=== PATIENT | female | born 1930 | race Hispanic/Latino ===

== ENCOUNTER 2018-04-12 15:33 | Emergency (ER) | payer MEDICARE, OTHER ==
[2018-04-12 15:49] VITALS: BP 132/81; PULSE 83; RESP 16; TEMP 96.5; O2SAT 100
--- NOTE | 2018-04-12 16:42 | ED PDOC ---
Upper Extremity Pain/Injury Time Seen by Provider: 04/12/18 15:53 Chief Complaint (Nursing): Weakness/Neurological Deficit Chief Complaint (Provider): Weakness/Neurological Deficit History Per: Patient History/Exam Limitations: no limitations Onset/Duration Of Symptoms: Days (x1 month) Current Symptoms Are (Timing): Still Present Quality: Other (tingling) Additional Complaint(s): 87 year old female with a history of hypertension and diabetes presents to the ED with intermittent right arm tingling for a month. Patient reports tingling is in her right forearm and hand. She states it occurs randomly and occurs spontaneously. Patient feels as though her right hand is weaker than her left. She is right hand dominant. Patient denies injury, fall, swelling, headache, neck pain or any other medical complaints. She was seen by her PMD today, who sent her here for further evaluation. PMD: Dr. Sebastian Past Medical History Reviewed: Historical Data, Nursing Documentation, Vital Signs Vital Signs: Last Vital Signs Temp 96.5 F L 04/12/18 15:46 Pulse 83 04/12/18 15:46 Resp 16 04/12/18 15:46 BP 132/81 04/12/18 15:46 Pulse Ox 100 04/12/18 15:46 - Medical History PMH: Diabetes, HTN - Surgical History Other surgeries: mastectomy - Family History Family History: States: No Known Family Hx - Social History Current smoker - smoking cessation education provided: No Ex-Smoker (has not smoked in the last 12 months): No Alcohol: None Drugs: Denies - Allergies Allergies/Adverse Reactions: Allergies Allergy/AdvReac Type Severity Reaction Status Date / Time No Known Allergies Allergy Verified 04/12/18 15:46 Review of Systems ROS Statement: Except As Marked, All Systems Reviewed And Found Negative Musculoskeletal: Positive for: Other (no neck pain, right arm tingling, no swelling) Neurological: Negative for: Headache Physical Exam - Reviewed Nursing Documentation Reviewed: Yes Vital Signs Reviewed: Yes - Physical Exam Appears: Positive for: Well, No Acute Distress Head Exam: Positive for: ATRAUMATIC, NORMOCEPHALIC Skin: Positive for: Warm, Dry Neck: Positive for: Painless ROM (full), Supple (with no tenderness with palpation ) Extremity: Positive for: Other (Right upper extremity: strong radial pulse, full ROM in right hand, light touch intact in all nerve distributions of the hand, capillary refill less than 2 seconds) Lymphatic: Negative for: Adenopathy Neurologic/Psych: Positive for: Alert, Oriented. Negative for: Motor/Sensory Deficits - ECG O2 Sat by Pulse Oximetry: 100 (RA) Pulse Ox Interpretation: Normal Medical Decision Making Medical Decision Making: Time: 1602 Initial Impression: Right arm paresthesias Differential diagnoses include but are not limited to: Peripheral vascular disease, peripheral neuropathy, cervical radiculopathy, subacute, Initial Plan: --Cervical spine CT --CT head without contrast --US duplex Time: 173 CT Cervical Spine: FINDINGS: VERTEBRAE: Reversal of the anatomic lordosis with kyphosis. Degree: Mild Proliferative changes emanating from the posterior aspect of the dens. 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 There is no appreciable canal stenosis at this level. DISCS/SPINAL CANAL/NEURAL FORAMINA: Disc degenerative changes C5-6, C6-7. discs heights are grossly preserved. PARASPINAL SOFT TISSUES: Unremarkable. OTHER FINDINGS: Incompletely visualized sphenoid sinusitis. IMPRESSION: No acute findings related to/accounting for the clinical presentation. Additional benign and/or incidental findings described above. Given the history of paresthesias, MRI is the recommended procedure of choice to evaluate cervical spine and assess for possible myelopathy. Time: [address]: FINDINGS: HEMORRHAGE: No intracranial hemorrhage. BRAIN: No mass effect or edema. Cortical atrophy and chronic microvascular ischemic change. VENTRICLES: Unremarkable. No hydrocephalus. CALVARIUM: Unremarkable. 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 MASTOID AIR CELLS: Unremarkable as visualized. No inflammatory changes. OTHER FINDINGS: None. IMPRESSION: No acute intracranial abnormalities. No significant findings to account for the clinical presentation. Time: 183 US Duplex FINDINGS: RIGHT UPPER EXTREMITY: * Prox SCA : Peak Systolic Velocity-64.1: Doppler Waveform: Triphasic.: Plaque description - * Distal SCA: Peak Systolic Velocity - : Doppler Waveform: Triphasic.: Plaque description - * Axillary: Peak Systolic Velocity-642: Doppler Waveform: Triphasic.: Plaque description - * Brachial o Segment: Peak Systolic Velocity-71.7: Doppler Waveform: Triphasic.: Plaque description - * Radial o Segment: Peak Systolic Velocity-36.7: Doppler Waveform: Triphasic.: Plaque description - * Ulnar o Peak Systolic Velocity-36.7: Doppler Waveform: Triphasic.: Plaque description - OTHER FINDINGS: No atherosclerotic calcification present IMPRESSION: There is no evidence of hemodynamically significant arterial insufficiency in right upper extremity. Time: 1800 --Imaging is unremarkable. Case discussed with Dr. Sebastian. Patient is stable for discharge home. ---- Scribe Attestation: Documented by Elzbieta Qiu, acting as a scribe for Leonor Ocampo MD Provider Scribe Attestation: All medical record entries made by the Scribe were at my direction and personally dictated by me. I have reviewed the chart and agree that the record accurately reflects my personal performance of the history, physical exam, medical decision making, and the department course for this patient. I have also personally directed, reviewed, and agree with the discharge instructions and disposition. Disposition - Clinical Impression Clinical Impression: Arm paresthesia, right Counseled Patient/Family Regarding: Studies Performed, Diagnosis, Need For Followup - Disposition Referrals: Valente Sebastian MD [Family Provider] - 04/13/18 Disposition: Routine/Home Disposition Time: 18:00 Condition: STABLE Instructions: Paresthesias (DC)
--- NOTE | 2018-04-12 17:41 | CT ---
Date of service: 04/12/2018 PROCEDURE: CT Cervical Spine without contrast HISTORY: RIGHT arm paresthesias weakness COMPARISON: None available. TECHNIQUE: Axial computed tomography images were obtained of the cervical spine without the use of intravenous contrast. Coronal and sagittal reformatted images were created and reviewed. Radiation dose: Total exam DLP = 1098.9 mGy-cm. This CT exam was performed using one or more of the following dose reduction techniques: Automated exposure control, adjustment of the mA and/or kV according to patient size, and/or use of iterative reconstruction technique. FINDINGS: VERTEBRAE: Reversal of the anatomic lordosis with kyphosis. Degree: Mild Proliferative changes emanating from the posterior aspect of the dens. 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 There is no appreciable canal stenosis at this level. DISCS/SPINAL CANAL/NEURAL FORAMINA: Disc degenerative changes C5-6, C6-7. discs heights are grossly preserved. PARASPINAL SOFT TISSUES: Unremarkable. OTHER FINDINGS: Incompletely visualized sphenoid sinusitis. IMPRESSION: No acute findings related to/accounting for the clinical presentation. Additional benign and/or incidental findings described above. Given the history of paresthesias, MRI is the recommended procedure of choice to evaluate cervical spine and assess for possible myelopathy.
--- NOTE | 2018-04-12 17:59 | CT ---
Date of service: 04/12/2018 PROCEDURE: CT HEAD WITHOUT CONTRAST. HISTORY: RIGHT arm paresthesias weakness COMPARISON: None available. TECHNIQUE: Axial computed tomography images were obtained through the head/brain without intravenous contrast. Supplemental Coronal and Sagittal projections created and reviewed. Radiation dose: Total exam DLP = 1098.90 mGy-cm. This CT exam was performed using one or more of the following dose reduction techniques: Automated exposure control, adjustment of the mA and/or kV according to patient size, and/or use of iterative reconstruction technique. FINDINGS: HEMORRHAGE: No intracranial hemorrhage. BRAIN: No mass effect or edema. Cortical atrophy and chronic microvascular ischemic change. VENTRICLES: Unremarkable. No hydrocephalus. CALVARIUM: Unremarkable. 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 MASTOID AIR CELLS: Unremarkable as visualized. No inflammatory changes. OTHER FINDINGS: None. IMPRESSION: No acute intracranial abnormalities. No significant findings to account for the clinical presentation.
--- NOTE | 2018-04-12 18:34 | US ---
Date of service: 04/12/2018 PROCEDURE: Right Upper Extremity Arterial Exam. HISTORY: RIGHT arm parasthesias COMPARISON: None available. TECHNIQUE: Grayscale and duplex Doppler evaluation of the right upper extremity was performed. Report prepared by survey technologist. FINDINGS: RIGHT UPPER EXTREMITY: * Prox SCA : Peak Systolic Velocity-64.1: Doppler Waveform: Triphasic.: Plaque description - * Distal SCA: Peak Systolic Velocity - : Doppler Waveform: Triphasic.: Plaque description - * Axillary: Peak Systolic Velocity-642: Doppler Waveform: Triphasic.: Plaque description - * Brachial o Segment: Peak Systolic Velocity-71.7: Doppler Waveform: Triphasic.: Plaque description - * Radial o Segment: Peak Systolic Velocity-36.7: Doppler Waveform: Triphasic.: Plaque description - * Ulnar o Peak Systolic Velocity-36.7: Doppler Waveform: Triphasic.: Plaque description - OTHER FINDINGS: No atherosclerotic calcification present IMPRESSION: There is no evidence of hemodynamically significant arterial insufficiency in right upper extremity.
== END 2018-04-12 19:46 | disposition home or self-care (01) ==
LOC: H.ER 15:33
DX: R20.2 Paresthesia of skin (principal); M79.601 Pain in right arm